=== PATIENT | female | born 1955 | race Asian ===

== ENCOUNTER 2022-02-28 15:54 | Outpatient (CLI) | payer MEDICARE, MEDICAID, SELFPAY ==
[2022-02-28 18:32] LABS: Albumin* 4.2 g/dL (3.3-5.0); Chloride* 108 mmol/L (96-114); Sodium* 137 mmol/L (135-149)
[2022-02-28 18:33] LABS: Potassium* 5.8 mmol/L (3.6-5.1)
[2022-02-28 18:34] LABS: Iron* 170 ug/dL (37-170)
[2022-02-28 18:35] LABS: Carbon Dioxide* 14 mmol/L (20-32); Creatinine* 8.3 mg/dL (0.5-1.5); Estimated Glomerular Filt Rate 5 ml/min
[2022-02-28 18:36] LABS: Blood Urea Nitrogen* 59 mg/dL (7-30); Calcium* 8.9 mg/dL (8.4-10.6); Glucose* 211 mg/dL (60-115); Phosphorus* 5.3 mg/dL (2.5-4.5)
[2022-02-28 18:43] LABS: Percent Iron Saturation 65 % (20-50); Total Iron Binding Capacity 264 ug/dL (265-497)
== END 2022-02-28 15:55 | disposition home or self-care (01) ==
PROVIDERS: PCP Nurse Practitioner; Visit Provider Internal Medicine Nephrology
DX: E04.9 Nontoxic goiter, unspecified (principal); I10 Essential (primary) hypertension; N18.5 Chronic kidney disease, stage 5
CPT/HCPCS: 80069; 82728; 83540; 83550; 84443